=== PATIENT | female | born 1965 ===

== ENCOUNTER 2018-09-27 09:44 | Outpatient (CLI) | payer MEDICARE, OTHER | END 2018-09-27 09:45 | disposition home or self-care (01) | LOC: C.RADH 09:44 ==

== ENCOUNTER 2018-09-27 12:46 | Outpatient (CLI) | payer MEDICARE, OTHER | END 2018-09-27 12:47 | disposition home or self-care (01) | LOC: C.MAMMO 12:47 | DX: Z12.31 Encounter for screening mammogram for malignant neoplasm of breast (principal) ==